=== PATIENT | male | born 1970 | race Caucasian/White ===

== ENCOUNTER 2024-11-05 07:59 | Emergency (ER) | payer OTHER, SELFPAY ==
[2024-11-05 08:05] VITALS: BP 161/102; PULSE 68; RESP 18; TEMP 36.4; O2SAT 96; BMI 31.0
--- NOTE | 2024-11-05 08:20 | ED_ITS ---
HPI - Neck Pain/Injury General Chief Complaint: Neck Pain/Injury Stated Complaint: Left lower neck pain x 2 weeks Time Seen by Provider: 11/05/24 08:02 Mode of arrival: Ambulatory History of Present Illness HPI Narrative: 54-year-old gentleman presents complaining of headache. He describes falling asleep in the car 2 weeks ago and having significant left-sided neck pain after that episode. That seemed to have been resolving but today is feeling significant tension left occiput level of the hands causing a headache. Comes in for further evaluation Related Data Home Medications ?Medication ?Instructions ?Recorded ?Confirmed omeprazole magnesium 20 mg 20 mg PO Q DAY ##0 11/12/10 tablet,delayed release (Prilosec OTC) Previous Rx's ?Medication ?Instructions ?Recorded cyclobenzaprine 10 mg tablet 10 mg PO TID PRN muscle s pasm #14 11/05/24 tabs Allergies Allergy/AdvReac Type Severity Reaction Status Date / Time codeine Allergy Unknown Verified 11/05/24 08:10 Patient History Social History Smoking Status: Current every day smoker Smoking Status: Current every day smoker Exam Initial Vital Signs Initial Vital Signs: Vital Signs Temperature 97.5 F L 11/05/24 08:05 Pulse Rate 68 11/05/24 08:05 Respiratory Rate 18 11/05/24 08:05 Blood Pressure 161/102 H 11/05/24 08:05 Pulse Oximetry 96 11/05/24 08:05 Oxygen Delivery Method Room Air 11/05/24 08:05 General: Alert appropriate in no acute distress HEENT: Minor tenderness in the entire trapezius muscle. Exquisite tenderness with palpation of the left occipital insert without swelling or redness Respiratory: Able to speak in full sentences, no obvious respiratory distress Skin: No obvious rashes, warm and dry Neurologic: Grossly intact no obvious asymmetries or abnormalities Psych: appropriate insight and affect, cooperative Course Orders Ordered: Discontinued Medications Cyclobenzaprine HCl (Cyclobenzaprine 10 Mg Tablet) 10 mg PO NOW ONE Stop: 11/05/24 08:08 Last Admin: 11/05/24 08:21 Dose: 10 mg Documented By: BT Vital Signs Vital signs: Vital Signs - 8 hr 11/05/24 08:05 Temperature 97.5 F L Pulse Rate 68 Respiratory Rate 18 Blood Pressure 161/102 H Pulse Oximetry 96 Oxygen Delivery Method Room Air MDM - Neck Pain/Injury MDM Narrative Medical decision making narrative: 54-year-old gentleman with the acute neck strain and trapezius muscle spasm improving over the last 2 weeks now causing occipital tension and significant headache. He is concerned that he might have a brain tumor or something worse. Based on his history and physical exam, this is entirely musculoskeletal in reassurance regarding more significant pathology that would require further workup or hospital admission is given. With the obvious point tenderness of the left occipital insertion, with shared decision-making, we agreed to inject lidocaine about the area to see if it would help with the headache. 3 cc of 1% lidocaine with epinephrine was injected at the point of maximal tenderness. Significant relief of pain and headache. Additional treatments include 10 mg of Flexeril to help with muscle spasm. He has been using ibuprofen at home appropriately At this time he is safe for home discharge, headache is dramatically improved to almost gone, neck pain is significantly less noticeable. Patient is safe for discharge Discharge Plan Departure Patient Disposition: Home Clinical Impression: Headache, occipital Strain of neck muscle Qualifiers: Encounter type: initial encounter Qualified Code(s): S16.1XXA - Strain of muscle, fascia and tendon at neck level, initial encounter Instructions: DI for Whiplash Activity Restrictions/Additional Instructions: I am sorry that you have been suffering so much these last 2 weeks. When you have strained your neck muscles they will pull in the bottom portion of your skull where the muscle attaches to the skull. This causes acute headaches. I have injected some lidocaine into the area and it seemed to help your headache significantly I have given you a prescription for Flexeril, a muscle relaxant to fill at the pharmacy of your choice. Using 400 mg of ibuprofen (2 [id number] pills) and 1 Tylenol every 6 hours can be very helpful in controlling pain. Ice and heat to the neck can also be helpful While the muscle strain is improving, it will likely continue to pull what the base of your skull so your headache may return. Hopefully the combination of medications above we will be helpful with a headache as well If you find that you are getting worse or develop any new symptoms, please feel free to return to the emergency department for further evaluation. Prescriptions: New cyclobenzaprine 10 mg tablet 10 mg PO TID PRN (Reason: muscle spasm) Qty: 14 0RF No Action omeprazole magnesium [Prilosec OTC] 20 MG tablet,delayed release (DR/EC) 20 mg PO Q DAY Qty: 0 Stand Alone Forms: Patient Portal/API
[2024-11-05] MEDS: CYCLOBENZAPRINE 10 MG TABLET PO (08:21)
--- NOTE | 2024-11-05 09:10 | PC.NURSE ---
Pt writhing on bed, nereyda. in room with pt. New orders received and implemented.
[2024-11-05] MEDS: KETOROLAC 30 MG/ML VIAL IM (09:18)
[2024-11-05] MEDS: DEXAMETHASONE 10 MG/ML VIAL PO (09:18)
[2024-11-05] MEDS: OXYCODONE/ACETAMINOPHEN 5/325 TABLET 1 TAB PO (09:19)
--- NOTE | 2024-11-05 10:10 | PC.NURSE ---
Pt laying back in gurney, eyes closed. States that he is feeling much better. Rates pain 3/10. Wants to go home.
[2024-11-05 10:11] VITALS: O2SAT 92
[2024-11-05 10:12] VITALS: BP 119/79
[2024-11-05 10:14] VITALS: BP 119/79; PULSE 52; RESP 19; TEMP 36.8; O2SAT 95
== END 2024-11-05 10:16 | disposition home or self-care (01) ==
PROVIDERS: Emergency Provider Emergency Medicine
DX: G44.89 Other headache syndrome (principal); S16.1XXA Strain of muscle, fascia and tendon at neck level, initial encounter; X58.XXXA Exposure to other specified factors, initial encounter
CPT/HCPCS: 96372; 99283; 99284; J1100; J1885